=== PATIENT | male | born 1965 | race Caucasian/White ===

== ENCOUNTER 2020-10-19 04:51 | Inpatient (IN) | payer OTHER ==
[2020-10-19] VITALS (11 sets, daily range): BP systolic 116–150; BP diastolic 65–75
[~2020-10-19] VITALS: Ht 195.6 cm; Wt 156.8 kg
[2020-10-19] MEDS ORDERED: ATENOLOL 25 MG25 M1 PO (05:05)
[2020-10-19] MEDS ORDERED: COZAAR 25 MG TA25 M1 PO (05:05)
[2020-10-19] MEDS ORDERED: EZETIMIBE-SIMV1 EAC3 PO (05:07)
[2020-10-19] MEDS ORDERED: SILDENAFIL CITR50 MG PO (05:08)
[2020-10-19 05:22] LABS: ABSOLUTE NEUTROPHILS 4.3 thou/uL (1.4-8.2); BASOPHILS 0.8 % (0.0-2.0); EOSINOPHILS 2.3 % (0.0-3.0); HEMATOCRIT 45.4 % (42.0-52.0); HEMOGLOBIN 14.9 gm/dL (14.0-18.0); LYMPHOCYTES 38.6 % (24.0-44.0); MCH 30.6 pg (26.0-34.0); MCHC 32.7 g/dL (28.0-37.0); MCV 93.5 fL (80.0-100.0); MONOCYTES 7.9 % (1.0-8.0); PLATELET COUNT 272 thou/uL (150-400); POLYS 50.4 % (36.0-66.0); RBC 4.86 mil/uL (4.50-6.00); RDW 13.3 % (10.5-14.5); WBC 8.5 thou/uL (4.0-11.0)
[2020-10-19 05:38] LABS: ANION GAP 9 mmol/L (7-16); BUN 30 mg/dL (7-18); CALCIUM 9.1 mg/dL (8.5-10.1); CHLORIDE 105 mmol/L (98-107); CO2 26 mmol/L (21-32); CREATININE 1.3 mg/dL (0.7-1.3); GLUCOSE 129 mg/dL (74-106); POTASSIUM 4.4 mmol/L (3.5-5.1); SODIUM 140 mmol/L (136-145)
[2020-10-19 05:47] LABS: ALBUMIN 3.7 g/dL (3.4-5.0); SGOT 20 U/L (15-37); SGPT 44 U/L (16-63); TOTAL BILIRUBIN 0.5 mg/dL (0.2-1.0); TOTAL PROTEIN 7.8 g/dL (6.4-8.2); TROPONIN-I <0.06 ng/mL (<0.06)
--- NOTE | 2020-10-19 07:00 | EKG ---
[place] [address] [facility] 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1965 Requested By: Mary Casanova Order Number: [id number] MD: Burt Carroll Measurements Intervals [place] Rate: 65 P: 54 KS: 208 QRS: 10 QRSD: 107 T: -9 QT: 396 QTc: 412 Interpretive Statements Sinus rhythm Borderline prolonged [place] interval Nonspecific T abnormalities, inferior leads Baseline wander in lead(s) II,aVF No previous ECG available for comparison Electronically Signed On 10-19-2020 6:59:51 CDT by Burt Carroll [email or web address] <ELECTRONICALLY SIGNED> By: Burt Carroll MD, [facility] 10/19/20 0659 D: 04/458 0459 Burt Carroll MD, FACC /EPI
[2020-10-19 09:14] LABS: CHOLESTEROL 175 mg/dL (<200); HDL CHOLESTEROL 48 mg/dL (>40); LDL CHOLESTEROL 93 mg/dL (<100); TC:HDL 3.6 Ratio (Not establshd); TRIGLYCERIDE 172 mg/dL (<150); VLDL 34 mg/dL (<40)
[2020-10-19] MEDS ORDERED: ASA81BEC PO (09:39)
--- NOTE | 2020-10-19 15:37 | CATHLAB ---
[facility] [place] [address] INVASIVE PROCEDURE REPORT Name: LYNNE MALONE Room #: 212-P [facility] M.R.#: [id number] Admission: 10/19/20 Attend Phys: Owen Cantu MD Discharge: Date of : 67 Report #: [id number] THIS REPORT FOR: cc: NO FAMILY PHYSICIAN or PCP NO FAMILY PHYSICIAN or PCP Luiz Liang MD ~ APPROVED REPORT Study performed: 10/19/2020 12:09:56 Patient Details Patient Status: ED Room #: The patient is a 55 year-old male Event Personnel Luiz Liang Oil And Gas Superintendent, Erasmo Dan RTR Sven Ortiz Ja'net RTR Monitor, Wilton Olmos RN dredge operator supervisor Performed Left Heart Cath w/or w/o Coronaries [id number] [facility] Art Access - R femoral artery* 75335 Initial Mod Sed Same Phys/QHP Gr5y 399829 63124 Mod Sed Same Phys/QHP Ea 962071 Hemostasis with Manual pressure Indication Dyspnea, Unstable angina , Chest pain Risk Factors Hypercholesterolemia, Coronary Artery DiseaseHypertension Previous Procedures/Diagnoses Previous PCI Procedure Narrative The patient was brought urgently to the Cardiac Catheterization Laboratory and was prepped and draped in a sterile manner. The Right Groin^ was infiltrated with 1% Lidocaine subcutaneous anesthesia. A PINNACLE 4FR Sheath #[id number] sheath was inserted into the RFA^. Coronary angiography was performed using coronary diagnostic catheters. The right coronary system was accessed and visualized with a JR4 catheter. The left coronary system was accessed and visualized with a JL5 catheter. The left ventricle was accessed and visualized with a PIGTAIL catheter. Hemostasis was obtained with manual pressure following sheath removal without any complications. The patient [facility] [address] [place] [address] INVASIVE PROCEDURE REPORT Name: LYNNE MALONE Room #: 212-P [facility].#: [id number] Admission: 10/19/20 Attend Phys: Owen Cantu, Discharge: Date of : 67 Report #: [id number] tolerated the procedure well and there were no complications associated with the procedure. There was no hematoma. Intraoperative Conscious Sedation Sedation start time: 12:45 Case end Time: 13:28 Fentanyl 50 mcg Versed 1 mg Fluoro Time: 3.70 minutes Dose: DAP 7434.00 cGycm2 1765 mGy Contrast Type and Amount: Visipaque 125 ml Coronary Angiography The patient's coronary anatomy is co- dominant. Diagnostic Cath Left Main The left main artery is a large-caliber vessel, patent with no flow-limiting lesions. LAD The LAD is a moderate-sized caliber vessel, traverses the anterior wall and wraps around the apex. There are overlapping stents in the proximal segment, extending out into the mid segment of the LAD. In the proximal segment, there is a severe restenotic lesion, 80%. In the distal portion of the stent that is situated in the mid LAD segment, there is 60-70% restenosis. Diagonal 1 This is a small to moderate-sized caliber vessel with moderate proximal disease. Diagonal 2 This is a small to moderate-sized caliber vessel with moderate proximal disease. Circumflex The left circumflex artery is a codominant vessel. There is mild disease in the mid and distal segments, 30%. OM1 This is a moderate-sized caliber vessel, patent with no flow-limiting lesions. OM2 This is a moderate-sized caliber vessel, patent with no flow-limiting lesions. Right Coronary There is a stent in the proximal segment of the RCA, patent with minimal restenosis. R PDA This is a moderate-sized caliber vessel, with mild disease proximally. Left Ventriculography The left ventricle is normal in size with borderline contractility. The left ventricular ejection fraction is estimated to be 50%. There is subtle hypokinesis of the anteroapical segment. Hemodynamics The aortic pressure is 116/69 mmHg with a mean of 89 mmHg. The [facility] [address] [place] [address] INVASIVE PROCEDURE REPORT Name: LYNNE MALONE Room #: 212-P [facility] M.R.#: [id number] Admission: 10/19/20 Attend Phys: Owen Cantu, Discharge: Date of : 67 Report #: [id number] ventricular pressure is 125/4 mmHg with a mean of mmHg. The left ventricular end diastolic pressure is 21 mmHg. Conclusion 1. There is severe restenosis in the LAD stent. Recommend laser atherectomy and PCI. 2. The RCA stent is patent with minimal restenosis. 3. There is mild disease in the left circumflex system. 4. There is borderline LV systolic function, ejection fraction of 50%. <ELECTRONICALLY SIGNED> By: Luiz Liang MD 10/19/20 1537 1537 1537 Luiz Liang MD /INF
--- NOTE | 2020-10-19 16:54 | NUR ---
PT CARE ASSUMED AT 1400. ASSESSMENTS CHARTED. MEDICATIONS CHARTED. RAC IV. SINUS BRADYCARDIA. NPO AFTER 0000. PT HAS CHEST DISCOMFORT X 1 WEEK; NIGHT SWEATS. CARDIAC CATH; RT GROIN, 0 CLOSURE. HEMOSTASIS 1330 BEDREST UNTIL 1630. CARDIAC CATH TOMORROW; CONSENT SIGNED.
--- NOTE | 2020-10-19 17:13 | EKG ---
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1965 Requested By: Mary Casanova Order Number: [id number] MD: Duy Sandoval Measurements Intervals [place] Rate: 64 P: 23 CO: 211 QRS: 1 QRSD: 106 T: 8 QT: 415 QTc: 428 Interpretive Statements Sinus rhythm Poor R wave progression Nonspecific T wave abnormality Compared to ECG 10/19/2020 04:59:14 No significant change was found Electronically Signed On 10-19-2020 17:13:29 CDT by Duy Sandoval [email or web address] <ELECTRONICALLY SIGNED> By: Duy Sandoval MD, [facility] 10/19/20 1713 0504 0504 Duy Sandoval MD, [facility] /EPI
[2020-10-20] VITALS (11 sets, daily range): BP systolic 109–133; BP diastolic 64–82
[2020-10-20 05:27] LABS: HEMATOCRIT 43.5 % (42.0-52.0); HEMOGLOBIN 14.4 gm/dL (14.0-18.0); MCH 30.9 pg (26.0-34.0); MCHC 33.2 g/dL (28.0-37.0); MCV 93.1 fL (80.0-100.0); RBC 4.67 mil/uL (4.50-6.00); RDW 13.3 % (10.5-14.5); WBC 9.4 thou/uL (4.0-11.0)
[2020-10-20 05:48] LABS: CALCIUM 8.7 mg/dL (8.5-10.1); CREATININE 1.1 mg/dL (0.7-1.3); POTASSIUM 4.2 mmol/L (3.5-5.1)
--- NOTE | 2020-10-20 11:50 | 2DMMODE ---
[facility] [place] [address] 2 D/M-MODE ECHOCARDIOGRAM Name: LYNNE MALONE Room #: 212-P [facility] M.R.#: [id number] Admission: 10/19/20 Attend Phys: Owen Cantu MD Discharge: Date of : 67 Report #: [id number] THIS REPORT FOR: cc: NO FAMILY PHYSICIAN or PCP NO FAMILY PHYSICIAN or PCP Luiz Liang MD ~ APPROVED REPORT Study performed: 10/20/2020 10:15:27 EXAM: Comprehensive 2D, Doppler, and color-flow Echocardiogram Patient Location: Bedside Room #: 212 Status: routine BSA: 2.87 HR: 56 bpm BP: 162/76 mmHg Rhythm: NSR Other Information Study Quality: Adequate Technically limited study due to morbid obesity. Indications Chest Pain Status post PCI Hx: cardiac stents, HTN, HLP. 2D Dimensions IVSd: 12.07 (7-11mm) LVOT Diam: 24.94 (18-24mm) LVDd: 53.59 mm PWd: 12.49 (7-11mm) Ascending Ao: 38.75 (22-36mm) LVDs: 36.76 (25-40mm) Left Atrium: 45.57 (27-40mm) Aortic Root: 38.76 mm Volumes Left Atrial Volume (Systole) Single Plane 4CH: 73.83 mL Single Plane 2CH: 99.96 mL LA ESV Index: 33.00 mL/m2 Aortic Valve AoV Peak Ronny.: 1.67 m/s AO Peak Gr.: 11.18 mmHg LVOT Max P.68 mmHg [facility] [address] [place] [address] 2 D/M-MODE ECHOCARDIOGRAM Name: LYNNE MALONE Room #: 212-P [facility] ..#: [id number] Admission: 10/19/20 Attend Phys: Owen Cantu, Discharge: Date of : 67 Report #: [id number] LVOT Max V: 1.08 m/s MARC Vmax: 3.16 cm2 Mitral Valve E/A Ratio: 0.8 MV Decel. Time: 278.08 ms MV E Max Ronny.: 0.59 m/s MV A Ronny.: 0.70 m/s MV PHT: 80.64 ms IVRT: 110.73 ms Pulmonary Valve PV Peak Ronny.: 1.10 m/s PV Peak Gr.: 4.86 mmHg Pulmonary Vein P Vein S: 0.46 m/s P Vein D: 0.37 m/s P Vein S/D Ratio: 1.24 Left Ventricle The left ventricle is normal size. There is normal LV segmental wall motion. Mild concentric left ventricular hypertrophy. Left ventricular systolic function is normal. LVEF is 55-60%. Mild diastolic dysfunction is present (impaired relaxation pattern). Right Ventricle The right ventricle is normal size. The right ventricular systolic function is normal. Atria Both atria measure at the upper limits of normal. Aortic Valve The aortic valve is normal in structure. No aortic regurgitation is present. There is no aortic valvular stenosis. Mitral Valve The mitral valve is normal in structure. There is no mitral valve regurgitation noted. No evidence of mitral valve stenosis. Tricuspid Valve The tricuspid valve is normal in structure. There is no tricuspid valve regurgitation noted. Unable to assess PA pressure. Pulmonic Valve [facility] [address] [place] [address] 2 D/M-MODE ECHOCARDIOGRAM Name: LYNNE MALONE Room #: 212-P ADM IN M.R.#: [id number] Admission: 10/19/20 Attend Phys: Owen Cantu, Discharge: Date of : 67 Report #: [id number] Pulmonic valve is not well visualized. There is no pulmonic valvular regurgitation. Great Vessels The aortic root and ascending aorta are mildly dilated at 3.9cm. IVC is not well visualized. Pericardium There is no pericardial effusion. <Conclusion> The left ventricle is normal size. Mild concentric left ventricular hypertrophy. Left ventricular systolic function is normal. Mild diastolic dysfunction is present (impaired relaxation pattern). The aortic valve is normal in structure. There is no mitral valve regurgitation noted. <ELECTRONICALLY SIGNED> By: Luiz Liang MD 10/20/20 1149 1149 1149 Luiz Liang MD /INF
--- NOTE | 2020-10-20 15:06 | CATHLAB ---
[facility] [place] [address] INVASIVE PROCEDURE REPORT Name: LYNNE MALONE Room #: 212-P ADM IN M.R.#: [id number] Admission: 10/19/20 Attend Phys: Owen Cantu MD Discharge: Date of : 67 Report #: [id number] THIS REPORT FOR: cc: NO FAMILY PHYSICIAN or PCP NO FAMILY PHYSICIAN or PCP Luiz Liang MD ~ APPROVED REPORT Study performed: 10/20/2020 08:11:03 Patient Details Patient Status: In-Patient Room #: The patient is a 55 year-old male Event Personnel Luiz Liang Construction Field Engineer, Lilly Ford RN RN, Aileen Gaines RTR, Sven Salinas Ja'net RTR Monitor Procedures Performed Art Access - R femoral artery* Atherectomy w/wo Plasty Sgl LAD [id number] ATHSINGLE [facility]WET[facility] Place w/wo Plasty Single LAD 919845 Hemostasis w/ Mynx 10485 Initial Mod Sed Same Phys/QHP Gr5y 248918 01371 Mod Sed Same Phys/QHP Ea 682285 Indication Dyspnea, Unstable angina , Chest pain, The patient was found to have severe restenotic lesions in the proximal and mid segments of the LAD. He presents today for planned laser atherectomy and PCI. Risk Factors Hypercholesterolemia, Coronary Artery DiseaseHypertension Previous Procedures/Diagnoses Previous PCI Procedure Narrative The patient was brought urgently to the Cardiac Catheterization Laboratory and was prepped and draped in a sterile manner. The RFG^ was infiltrated with 1% Lidocaine subcutaneous anesthesia. A PINNACLE 6FR Sheath #[id number] sheath was inserted into the RFA^. Coronary angiography was performed using coronary diagnostic catheters. Closure device was deployed with a Fr MYNXGRIP 6/7F #[id number]. The patient tolerated the procedure well and there were no complications [address] [address] INVASIVE PROCEDURE REPORT Name: LYNNE MALONE Room #: 212-P [facility] .R.#: [id number] Admission: 10/19/20 Attend Phys: Owen Cantu, Discharge: Date of : 67 Report #: [id number] associated with the procedure. There was no hematoma. LASER ATHERECTOMY WAS DONE ON THE PROX. AND MID SEGMENTS OF THE LAD WITH A CORONARY LASER CATHETER RX 0.9MM X-80. Intraoperative Conscious Sedation Sedation start time: 8:22 Case end Time: 9:56 Fentanyl 200 mcg Versed 2 mg Fluoro Time: 27.90 minutes Dose: DAP 26328.00 cGycm2 7060 mGy Contrast Type and Amount: Visipaque 185 ml Hemodynamics The aortic pressure is 132/75 mmHg with a mean of 100 mmHg. PCI Technique Lesion Percutaneous coronary intervention was performed on the mid left anterior descending artery segment. A VISTA 6FR XB 4 #309327 Guide Catheter was used to engage the LAD ostium. A Luge Wire .014 x 182CM #[id number] Interventional Guidewire was used to cross the lesion. BALLOON DILATION A Balloon catheter TREK NC RX 2.5 X 12 #[id number] was inserted and inflated up to 16.00atm for 17seconds. Additional Inflation: 18.00atm for 11seconds. Additional Inflation: 16.00atm for 9seconds. After laser atherectomy was performed, the mid LAD segment was dilated with noncompliant balloons. ADDITIONAL INFLATION: 18atm for 11 seconds. ADDITIONAL INFLATION: 18atm for 13 seconds. STENT DEPLOYMENT A stent RESOLUTE RHIANNON OTW 2.75 X 15 #[id number] was inserted and inflated up to 12atm for 26seconds. Additional Inflation: 14.00atm for 12seconds. Additional Inflation: 18.00atm for 19seconds. A 3.0 x 18 mm Resolute drug-eluting stent was inflated overlapping the first deployed stent but proximal to it. The stent was postdilated with a 3.25 mm noncompliant balloon, up to 18 candelario. POST STENT DEPLOYMENT BALLOON DILATION A Balloon catheter TREK NC RX 3.0 X 12 #[id number] was inserted and inflated up to 16atm for 18seconds. Final angiography reveals 5 % stenosis with NOEL 3 flow. STENT DEPLOYMENT [facility] [address] [place] [address] INVASIVE PROCEDURE REPORT Name: LYNNE MALONE Room #: 212-P [facility] IN M.R.#: [id number] Admission: 10/19/20 Attend Phys: Owen Cantu, Discharge: Date of : 67 Report #: [id number] A stent RESOLUTE RHIANNON RX 3.0 X 18 #[id number] was inserted and inflated up to 14.00atm for 16seconds. POST STENT DEPLOYMENT BALLOON DILATION A Balloon catheter TREK NC RX 3.0 X 12 #[id number] was inserted and inflated up to 16.00atm for 34seconds. Additional Inflation: 18.00atm for 11seconds. Additional Inflation: 18.00atm for 16seconds. ADDITIONAL INFLATION: 18atm for 18 seconds. PCI Technique Lesion 2 Percutaneous Coronary Intervention was performed on the proximal left anterior descending artery segment. The lesion stenosis prior to intervention was 80% with NOEL 3 flow. A VISTA 6FR XB 4 #[id number] Guide Catheter was used to engage the LAD ostium. A Luge Wire .014 x 182CM #132124 Interventional Guidewire was used to cross the lesion. Balloon Dilation A Balloon catheter TREK NC RX 3.0 X 12 #[id number] was inserted and inflated up to 16atm for 12seconds. After laser atherectomy was performed on the proximal segment, this area was dilated with a noncompliant 3.0 mm balloon. Stent Deployment A stent RESOLUTE RHIANNON RX 3.0 X 15 #[id number] was inserted and inflated up to 16.00atm for 26seconds. Post Stent Deployment Balloon Dilation A Balloon catheter TREK NC RX 3.25 X 12 #[id number] was inserted and inflated up to 18.00atm for 18seconds. Additional Inflation: 18.00atm for 16seconds. Additional Inflation: 18.00atm for 19seconds. ADDITIONAL INFLATON: 18atm for 11 seconds. Final angiography reveals 5 % stenosis with NOEL 3 flow. Conclusion 1. Successful PCI involving laser atherectomy and stent placement to the restenotic lesions in the proximal and mid segments of the LAD. 2. Recommend dual antiplatelet therapy and aggressive risk factor management. <ELECTRONICALLY SIGNED> By: Luiz Liang MD 10/20/20 1505 1505 1505 Luiz Liang MD /ARIAS
--- NOTE | 2020-10-20 15:15 | EKG ---
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 : 1965 Requested By: Luiz Liang Order Number: [id number] MD: Duy Sandoval Measurements Intervals [place] Rate: 50 P: -19 MN: 204 QRS: 25 QRSD: 102 T: 17 QT: 467 QTc: 426 Interpretive Statements Sinus rhythm Borderline prolonged [place] interval Abnormal R-wave progression, late transition Compared to ECG 10/19/2020 05:04:33 No significant change was found Electronically Signed On 10-20-2020 15:15:02 CDT by Duy Sandoval [email or web address] <ELECTRONICALLY SIGNED> By: Duy Sandoval MD, [facility] 10/20/20 1515 1258 1258 Duy Sandoval MD, [facility] /EPI
--- NOTE | 2020-10-20 18:24 | NUR ---
PATIENT TO WIRE STRIPPER AT 0730. ARRIVED BACK TO ROOM POST 3 STENT PLACEMENT. ECHO PREFORMED. CATH SITE CLEAN DRY AND INTACT ON ARRIVAL, NO BLEEDING, NO HEMATOMA. GROIN SITE REMAINED FREE OF BLEEDING AND HEMATOMA THROUGHOUT SHIFT. PATIENT AMBULATED AROUND UNIT. WILL CONTINUE TO MONITOR.
[2020-10-21 05:20] LABS: HEMATOCRIT 43.1 % (42.0-52.0); HEMOGLOBIN 14.2 gm/dL (14.0-18.0); MCH 30.9 pg (26.0-34.0); MCV 93.4 fL (80.0-100.0); RBC 4.61 mil/uL (4.50-6.00); RDW 13.6 % (10.5-14.5); WBC 9.9 thou/uL (4.0-11.0)
[2020-10-21 06:03] LABS: ALBUMIN 3.3 g/dL (3.4-5.0); CALCIUM 8.7 mg/dL (8.5-10.1); CREATININE 1.2 mg/dL (0.7-1.3); TOTAL BILIRUBIN 0.9 mg/dL (0.2-1.0); TOTAL PROTEIN 7.5 g/dL (6.4-8.2)
--- NOTE | 2020-10-21 07:36 | EKG ---
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 : 1965 Requested By: Luiz Liang Order Number: [id number] MD: Duy Sandoval Measurements Intervals [place] Rate: 58 P: -20 HI: 198 QRS: 12 QRSD: 98 T: 25 QT: 439 QTc: 432 Interpretive Statements Sinus rhythm Abnormal R-wave progression, late transition Compared to ECG 10/20/2020 12:58:17 No significant change was found Electronically Signed On 10-21-2020 7:36:43 CDT by Duy Sandoval [email or web address] <ELECTRONICALLY SIGNED> By: Duy Sandoval MD, [facility] 10/21/20 0736 6 6 Duy Sandoval MD, [facility] /EPI
[2020-10-21 08:00] VITALS: BP 137/88
[2020-10-21] MEDS ORDERED: EFFIENT10 MG PO (08:21)
[2020-10-21 10:59] VITALS: BP 137/88
== END 2020-10-21 11:54 | disposition home or self-care (01) | DRG 246 ==
LOC: ER 04:51 → EROBS 06:47 → 2N 06:47 → EROBS 06:47 → 2N 11:37
PROVIDERS: Emergency Medicine; Internal Medicine Cardiovascular Disease; ADMIT Internal Medicine; ATTEND Internal Medicine
PROC: B215YZZ Fluoroscopy of Left Heart using Other Contrast (ICD-10-PCS; principal; 2020-10-20)
PROC: 4A023N7 Measurement of Cardiac Sampling and Pressure, Left Heart, Percutaneous Approach (ICD-10-PCS; principal; 2020-10-20)
PROC: B211YZZ Fluoroscopy of Multiple Coronary Arteries using Other Contrast (ICD-10-PCS; principal; 2020-10-20)
PROC: 027037Z Dilation of Coronary Artery, One Artery with Four or More Drug-eluting Intraluminal Devices, Percutaneous Approach (ICD-10-PCS; principal; 2020-10-20)
PROC: 02C03ZZ Extirpation of Matter from Coronary Artery, One Artery, Percutaneous Approach (ICD-10-PCS; principal; 2020-10-20)
DX: T82.855A Stenosis of coronary artery stent, initial encounter (principal); I25.110 Atherosclerotic heart disease of native coronary artery with unstable angina pectoris; Z68.41 Body mass index [BMI] 40.0-44.9, adult; I10 Essential (primary) hypertension; E78.5 Hyperlipidemia, unspecified; E66.9 Obesity, unspecified; Y83.8 Other surgical procedures as the cause of abnormal reaction of the patient, or of later complication, without mention of misadventure at the time of the procedure; Z95.5 Presence of coronary angioplasty implant and graft; Z88.0 Allergy status to penicillin; Z79.82 Long term (current) use of aspirin; Z79.899 Other long term (current) drug therapy; Y92.89 Other specified places as the place of occurrence of the external cause
CPT/HCPCS: 10081

== ENCOUNTER 2021-08-16 22:15 | Inpatient (IN) | payer OTHER ==
[~2021-08-16] VITALS: Ht 195.6 cm; Wt 167.8 kg
[~2021-08-16 22:15] MED LIST: ASA81BEC PO; ATENOLOL 25 MG25 M1 PO; COZAAR 25 MG TA25 M1 PO; EFFIENT10 MG PO; EZETIMIBE-SIMV1 EAC3 PO; SILDENAFIL CITR50 MG PO
[2021-08-16 22:47] VITALS: BP 163/90
[2021-08-16] MEDS ORDERED: EFFIENT10 MG PO (22:52)
[2021-08-16 23:01] LABS: ABSOLUTE NEUTROPHILS 4.8 thou/uL (1.4-8.2); BASOPHILS 0.7 % (0.0-2.0); EOSINOPHILS 1.7 % (0.0-3.0); HEMATOCRIT 42.4 % (42.0-52.0); HEMOGLOBIN 14.4 gm/dL (14.0-18.0); LYMPHOCYTES 29.8 % (24.0-44.0); MCH 30.8 pg (26.0-34.0); MCHC 33.9 g/dL (28.0-37.0); MCV 90.8 fL (80.0-100.0); MONOCYTES 8.7 % (1.0-8.0); PLATELET COUNT 269 thou/uL (150-400); POLYS 59.1 % (36.0-66.0); RBC 4.67 mil/uL (4.50-6.00); RDW 13.4 % (10.5-14.5); WBC 8.1 thou/uL (4.0-11.0)
[2021-08-16] MEDS ORDERED: CARVEDILOL12.5 MG PO ×2 (23:11)
[2021-08-16] MEDS ORDERED: REPATHA SU140 MG/1 M SUBQ ×2 (23:13)
[2021-08-16 23:21] LABS: CALCIUM 9.4 mg/dL (8.5-10.1); CREATININE 1.2 mg/dL (0.7-1.3); POTASSIUM 4.3 mmol/L (3.5-5.1)
[2021-08-16 23:32] LABS: ALBUMIN 3.5 g/dL (3.4-5.0); TOTAL BILIRUBIN 0.3 mg/dL (0.2-1.0); TOTAL PROTEIN 7.2 g/dL (6.4-8.2)
--- NOTE | 2021-08-17 03:31 | NUR ---
WHEN PT IS SLEEPING, HIS O2 SATS FLUCTUATE AND DROPS INTO THE 80S. RECOMMENDED PT WEAR 2L NC WHILE SLEEPING, BUT HE REFUSED. STATES PT LIKELY HAS SLEEP APNEA AND THIS IS NOT A NEW CONCERN. SHE STATES PT DOES NOT WANT TO HAVE SLEEP STUDY DONE.
[2021-08-17 04:45] VITALS: BP 155/88
[2021-08-17 05:38] LABS: CALCIUM 8.5 mg/dL (8.5-10.1); POTASSIUM 4.1 mmol/L (3.5-5.1)
[2021-08-17 05:43] LABS: CHOLESTEROL 122 mg/dL (<200); HDL CHOLESTEROL 62 mg/dL (>40); LDL CHOLESTEROL 41 mg/dL (<100); SERUM ASSESSMENT Clear; TRIGLYCERIDE 99 mg/dL (<150); VLDL 20 mg/dL (<40)
--- NOTE | 2021-08-17 07:18 | EKG ---
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
[2021-08-17] MEDS ORDERED: BENICAR20 MG PO ×2 (08:36)
[2021-08-17] MEDS ORDERED: PROTONIX40 M2 PO ×2 (08:38)
[2021-08-17 09:17] VITALS: BP 155/88
[2021-08-17 11:39] VITALS: BP 165/86
== END 2021-08-17 11:39 | disposition home or self-care (01) | DRG 313 ==
LOC: ER 22:15 → EROBS 08-17 00:29
PROVIDERS: Emergency Medicine; Nurse Practitioner Family; ADMIT Hospitalist; ATTEND Hospitalist
DX: R07.9 Chest pain, unspecified (principal); E78.5 Hyperlipidemia, unspecified; I10 Essential (primary) hypertension; I25.10 Atherosclerotic heart disease of native coronary artery without angina pectoris; Z20.822 Contact with and (suspected) exposure to COVID-19; Z95.5 Presence of coronary angioplasty implant and graft; Z88.0 Allergy status to penicillin; Z83.3 Family history of diabetes mellitus; Z82.49 Family history of ischemic heart disease and other diseases of the circulatory system; Z79.82 Long term (current) use of aspirin; Z79.899 Other long term (current) drug therapy

== ENCOUNTER → 2021-08-18 | Outpatient (CLI) | payer OTHER ==
[~2021-08-18] MED LIST changes: +BENICAR20 MG PO; +CARVEDILOL12.5 MG PO; +PROTONIX40 M2 PO; +REPATHA SU140 MG/1 M SUBQ
== END ==
LOC: SJCVCIMAG 09:03
PROVIDERS: ATTEND Internal Medicine Cardiovascular Disease
DX: I25.9 Chronic ischemic heart disease, unspecified (principal); I25.10 Atherosclerotic heart disease of native coronary artery without angina pectoris